=== PATIENT | male | born 1945 | race Caucasian/White ===

== ENCOUNTER 2017-09-08 06:39 | Emergency (ER) | payer OTHER ==
--- NOTE | 2017-09-08 06:50 | PDOC ---
History of Present Illness - General Chief Complaint: Bite Stated Complaint: FOUND 2 TICKS ON HIMSELF Time Seen by Provider: 09/08/17 06:47 - History of Present Illness Initial Comments: 09/08/17 06:47 [id number] presenting to ED this morning after his found two ticks on his body, one was noted to be engorged. removed the ticks and pt has brought them to the ER. Was in [place] over the weekend, so tick may have been attached for >2 days. No CP/SOB, fever/chills. No other sxs. Past History - Past Medical History Allergies/Adverse Reactions: Allergies Allergy/AdvReac Type Severity Reaction Status Date / Time No Known Allergies Allergy Verified 09/08/17 06:41 Home Medications: Ambulatory Orders Atorvastatin Ca [Lipitor] 10 mg PO HS 01/05/14 Fluticasone Prop 0.05% Nasal [Flonase -] 1 - 2 spray NS DAILY 09/08/17 Hypercholesterolemia: Yes - Suicide/Smoking/Psychosocial Hx Smoking History: Never smoked Hx Alcohol Use: No Substance Use Type: None *Physical Exam - Physical Exam General Appearance: Yes: Nourished, Appropriately Dressed. No: Apparent Distress Respiratory/Chest: positive: Lungs Clear, Normal Breath Sounds Cardiovascular: positive: Regular Rhythm, Regular Rate Extremity: positive: Other (+single hyperemic lesion to L posterior thigh without evidence of rash) Neurologic: positive: Fully Oriented, Alert Medical Decision Making - Medical Decision Making 09/08/17 06:50 Pt presenting after tick bite. Pt brought tick to ED, appears to be a deer tick from visual inspection of the tick. Was in an area in which lyme disease is endemic, tick may have been attached for >2 days based on timeline and was just removed this morning by his . Will treat prophylactically for lyme disease with 200mg PO doxycycline. Recommend f/u with PMD. *DC/Admit/Observation/Transfer Diagnosis at time of Disposition: Tick bite - Discharge Dispostion Disposition: HOME Condition at time of disposition: Stable Decision to Admit order: No - Referrals - Patient Instructions Additional Instructions: You were seen in the ER after finding a two ticks on your body. Because of the timeline of the tick and the possibility of lyme disease, you were treated with 200mg of doxycycline to prevent development of lyme disease. Please follow up with your primary care doctor, wear long pants when in long grass and follow up with your primary care doctor. - Post Discharge Activity
[2017-09-08] MEDS ORDERED: DOXYCYCLINE HYCLATE 100 MG CAPSULE PO ONE (06:52)
[2017-09-08 06:53] VITALS: BP 115/80; PULSE 58; TEMP 98.3; BMI 25.0
== END 2017-09-08 07:08 | disposition home or self-care (01) ==
LOC: FER 06:39
DX: S70.362A Insect bite (nonvenomous), left thigh, initial encounter (principal); W57.XXXA Bitten or stung by nonvenomous insect and other nonvenomous arthropods, initial encounter; Y93.89 Activity, other specified; Y92.89 Other specified places as the place of occurrence of the external cause
CPT/HCPCS: 99281-25